=== PATIENT | male | born 1950 | race African-American/Black ===

== ENCOUNTER 2020-11-08 08:22 | Inpatient (IN) ==
[2020-11-08] MEDS ORDERED: FUROSEMIDE 100 MG/10 ML VIAL IV STA (08:44)
[2020-11-08] MEDS ORDERED: NITROGLYCERIN SL 0.4 MG TABLET SL PRN (08:45)
[2020-11-08] MEDS ORDERED: NITROGLYCERIN 2% OINT 1 INCH/GM PACK TOP STA (08:45)
[2020-11-08 09:18] LABS: Basophils % 0.6 % (0.0-0.8); Eosinophils # 0.4 10*3/uL (0.0-0.87); Eosinophils % 5.3 % (0.00-10.9); Hematocrit 36.5 VOL% (42.0-52.0); Hemoglobin 11.8 GM/DL (14.0-18.0); Immature Granulocytes % 0.4 %; Immature Granulocytes Absolute 0.03 #; Lymphocytes # 2.2 10*3/uL (1.4-4.0); Mean Corpuscular HGB Conc 32.3 GM/DL (32-36); Mean Corpuscular Volume 84.7 FL (87-102); Mean Platelet Volume 9.5 FL (9.6-12.0); Monocytes % 7.3 % (1.7-12.7); Neutrophils % 55.4 % (38.7-73.9); Platelet Count 268 T/CUMM (130-400); Red Blood Count 4.31 MC/CUMM (3.8-5.5); Red Cell Distribution Width 14.7 % (9.3-17.3); White Blood Count 7.2 T/CUMM (4-12)
[2020-11-08 09:38] LABS: INR 1.1; PT Patient Result 11.9 SECS (9.8-11.9); Partial Thromboplastin Time 31.3 SECS (23.9-33.8)
[2020-11-08 10:13] LABS: Alanine Aminotransferase 18 U/L (16-61); Albumin 3.4 G/DL (3.4-5.0); Alkaline Phosphatase 96 U/L (45-117); Aspartate Amino Transferase 15 U/L (0-37); Bilirubin,Total < 0.39 MG/DL (0.2-1.0); Blood Urea Nitrogen 24 MG/DL (7-18); Carbon Dioxide 23 MMOL/L (21-32); Estimated Glom Filtration Rate 50 ML/MIN; Glucose 114 MG/DL (74-106); Osmolality,Calculated 281.5 MOS/KG (273-304); Potassium 3.8 MMOL/L (3.5-5.1); Sodium 139 MMOL/L (136-145); Total Protein 7.9 G/DL (6.4-8.3)
[2020-11-08 10:23] LABS: Bacteria,Urine Occasional /HPF (Few); Bilirubin,Urine Negative (Negative); Blood, Urine Negative (Negative); Glucose,Urine (UA) Negative (Negative); Ketones,Urine Negative (Negative); Mucus,Urine Occasional /LPF (Occasional); Nitrite,Urine Negative (Negative); Protein,Urine Negative; RBC,Urine 2 /HPF (0-4); Squamous Epithelial Cell,Urine Occasional /HPF (0-10); Urine Appearance CLEAR (Clear); Urine Color Yellow (Yellow); Urine Specific Gravity 1.012 (1.001-1.035); Urine Urobilinogen < 2.0 EU/DL (0.2-1.0); WBC,Urine <1 /HPF (0-6)
[2020-11-08] MEDS ORDERED: ONDANSETRON 4 MG/2 ML VIAL IV PRN (12:45)
[2020-11-08] MEDS ORDERED: ENOXAPARIN 40 MG/0.4 ML SYRINGE SUBCUT STA (12:45)
[2020-11-08] MEDS ORDERED: ENOXAPARIN 40 MG/0.4 ML SYRINGE SUBCUT SCH (13:00)
[2020-11-08] MEDS ORDERED: ACETAMINOPHEN 500 MG TABLET ONE (13:08)
[2020-11-08] MEDS: ACETAMINOPHEN 325 MG TABLET PO PRN (13:18)
[2020-11-08] MEDS: SODIUM CHLORIDE 0.45% 1,000 ML IV SCH (14:02)
[2020-11-08] MEDS: DOCUSATE SODIUM 100 MG CAPSULE PO SCH (20:35)
[2020-11-09 06:32] LABS: Risk Ratio 2.79; VLDL CHOLESTEROL 16.8 MG/DL
[2020-11-09] MEDS: amLODIPine 5 MG TABLET PO SCH (08:38)
[2020-11-09] MEDS: DOCUSATE SODIUM 100 MG CAPSULE PO SCH ×2 (08:38→20:17)
[2020-11-09] MEDS: PANTOPRAZOLE 40 MG TABLET PO SCH (08:39)
[2020-11-09] MEDS: ENOXAPARIN 40 MG/0.4 ML SYRINGE SUBCUT SCH (08:44)
[2020-11-09] MEDS: ACETAMINOPHEN 325 MG TABLET PO PRN (10:02)
[2020-11-09] MEDS: MECLIZINE 25 MG TABLET PO SCH ×2 (10:02→20:17)
[2020-11-09] MEDS: NAPROXEN 500 MG TABLET PO PRN ×2 (13:22→20:17)
[2020-11-09] MEDS: SODIUM CHLORIDE 0.45% 1,000 ML IV SCH (20:16)
[2020-11-10 06:15] LABS: Calcium 8.5 MG/DL (8.5-10.1); Osmolality,Calculated 282.4 MOS/KG (273-304); Potassium 3.8 MMOL/L (3.5-5.1)
[2020-11-10] MEDS: ENOXAPARIN 40 MG/0.4 ML SYRINGE SUBCUT SCH (08:20)
[2020-11-10] MEDS: DOCUSATE SODIUM 100 MG CAPSULE PO SCH ×2 (08:20→20:24)
[2020-11-10] MEDS: PANTOPRAZOLE 40 MG TABLET PO SCH (08:20)
[2020-11-10] MEDS: amLODIPine 5 MG TABLET PO SCH (08:20)
[2020-11-10] MEDS: MECLIZINE 25 MG TABLET PO SCH ×2 (08:20→20:23)
[2020-11-10] MEDS: methylPREDNISolone SOD SUC 40 MG/1 ML VIAL IV SCH ×3 (09:52→23:47)
[2020-11-11] MEDS: SODIUM CHLORIDE 0.45% 1,000 ML IV SCH ×2 (04:47→20:43)
[2020-11-11 05:39] LABS: Hematocrit 33.7 VOL% (42.0-52.0); Hemoglobin 10.9 GM/DL (14.0-18.0); Immature Granulocytes % 0.7 %; Immature Granulocytes Absolute 0.07 #; Lymphocytes # 1.1 10*3/uL (1.4-4.0); Lymphocytes % 11.8 % (21.2-54.2); Mean Corpuscular HGB Conc 32.3 GM/DL (32-36); Mean Corpuscular Volume 85.3 FL (87-102); Mean Platelet Volume 9.7 FL (9.6-12.0); Monocytes % 1.7 % (1.7-12.7); Neutrophils % 85.8 % (38.7-73.9); Platelet Count 318 T/CUMM (130-400); Red Blood Count 3.95 MC/CUMM (3.8-5.5); Red Cell Distribution Width 14.7 % (9.3-17.3); White Blood Count 9.5 T/CUMM (4-12)
[2020-11-11 06:06] LABS: Albumin 2.7 G/DL (3.4-5.0); Bilirubin,Total 0.8 MG/DL (0.2-1.0); Calcium 9.2 MG/DL (8.5-10.1); Osmolality,Calculated 285.4 MOS/KG (273-304); Potassium 4.8 MMOL/L (3.5-5.1); Total Protein 7.6 G/DL (6.4-8.3)
[2020-11-11] MEDS ORDERED: SODIUM CHLORIDE 0.45% 1,000 ML IV SCH (08:30)
[2020-11-11] MEDS ORDERED: amLODIPine 10 MG TABLET PO SCH (09:00)
[2020-11-11] MEDS: MECLIZINE 25 MG TABLET PO SCH ×2 (09:09→20:17)
[2020-11-11] MEDS: DOCUSATE SODIUM 100 MG CAPSULE PO SCH ×2 (09:10→20:17)
[2020-11-11] MEDS: PANTOPRAZOLE 40 MG TABLET PO SCH (09:10)
[2020-11-11] MEDS: ENOXAPARIN 40 MG/0.4 ML SYRINGE SUBCUT SCH (09:12)
[2020-11-11] MEDS: methylPREDNISolone SOD SUC 40 MG/1 ML VIAL IV SCH ×3 (09:13→23:39)
[2020-11-11] MEDS: NAPROXEN 500 MG TABLET PO PRN (11:42)
[2020-11-12 05:47] LABS: Basophils % 0.1 % (0.0-0.8); Hematocrit 32.6 VOL% (42.0-52.0); Hemoglobin 10.7 GM/DL (14.0-18.0); Immature Granulocytes % 0.7 %; Lymphocytes # 1.3 10*3/uL (1.4-4.0); Lymphocytes % 8.9 % (21.2-54.2); Mean Corpuscular HGB Conc 32.8 GM/DL (32-36); Mean Corpuscular Volume 84.5 FL (87-102); Neutrophils % 88.3 % (38.7-73.9); Platelet Count 290 T/CUMM (130-400); Red Blood Count 3.86 MC/CUMM (3.8-5.5); Red Cell Distribution Width 15.2 % (9.3-17.3)
[2020-11-12 05:54] LABS: White Blood Count 14.2 T/CUMM (4-12)
[2020-11-12 06:06] LABS: Platelet Estimate Adequate
[2020-11-12 06:13] LABS: Calcium 8.6 MG/DL (8.5-10.1); Osmolality,Calculated 284.8 MOS/KG (273-304); Potassium 5.4 MMOL/L (3.5-5.1)
[2020-11-12 09:48] VITALS: BP 160/79
== END 2020-11-12 09:50 | disposition home or self-care (01) | DRG 149 ==
LOC: N.ED 08:22 → N.EDINP 12:45 → N.4E 13:28
PROVIDERS: ADMIT Family Medicine; ATTEND Family Medicine